=== PATIENT | male | born 1980 | race Caucasian/White ===

== ENCOUNTER 2018-08-29 11:08 | Emergency (ER) | payer OTHER ==
[2018-08-29] MEDS: ACETAMINOPHEN 325 MG TAB PO (11:29)
[2018-08-29 12:04] LABS: INFLUENZA A AMPLIFICATION NEGATIVE (NEGATIVE); INFLUENZA B AMPLIFICATION NEGATIVE (NEGATIVE)
== END 2018-08-29 12:58 | disposition home or self-care (01) ==
LOC: M ED 11:08
DX: J40 Bronchitis, not specified as acute or chronic (principal)
CPT/HCPCS: 71046